=== PATIENT | female | born 1985 | race Caucasian/White ===

== ENCOUNTER 2018-12-07 19:46 | Emergency (ER) | payer SELFPAY ==
[~2018-12-07] VITALS: Ht 149.9 cm; Wt 72.6 kg
[2018-12-07 20:33] VITALS: Ht 149.9 cm; Wt 72.6 kg
[2018-12-08 00:17] VITALS: BP 102/71
== END 2018-12-08 00:17 | disposition home or self-care (01) ==
LOC: ED 19:46
DX: N13.2 Hydronephrosis with renal and ureteral calculous obstruction (principal); Z88.0 Allergy status to penicillin
CPT/HCPCS: Q0092

== ENCOUNTER 2019-11-06 15:14 | Emergency (ER) | payer MEDICAID, SELFPAY ==
[~2019-11-06] VITALS: Ht 149.9 cm; Wt 76.7 kg
[2019-11-06 15:16] VITALS: BP 98/70; Ht 149.9 cm; Wt 76.7 kg
== END 2019-11-06 17:20 | disposition home or self-care (01) ==
LOC: ED 15:14
DX: N39.0 Urinary tract infection, site not specified (principal); Z20.828 Contact with and (suspected) exposure to other viral communicable diseases; Z87.442 Personal history of urinary calculi; Z88.0 Allergy status to penicillin
CPT/HCPCS: U0003-CS